=== PATIENT | female | born 1960 | race African-American/Black ===

== ENCOUNTER 2021-01-08 04:13 | Day surgery (SDC) | payer OTHER ==
[2021-01-04 16:53] VITALS: BMI 19.5
[2021-01-08] MEDS ORDERED: MIDAZOLAM HCL 2 MG/2 ML SINGLE DOSE VIAL ONE ×2 (08:41)
[2021-01-08] MEDS ORDERED: DEXAMETHASONE SOD PHOSPHATE 4 MG/1 ML VIAL ONE (08:50)
[2021-01-08 09:30] VITALS: TEMP 97.5
[2021-01-08 12:55] VITALS: BP 139/61; PULSE 50
== END 2021-01-08 12:35 | disposition home or self-care (01) ==
LOC: JASU-SURG 04:13
PROVIDERS: ATTEND Urology
PROC: 0TF4XZZ Fragmentation in Left Kidney Pelvis, External Approach (ICD-10-PCS; principal; 2021-01-08 08:30)
DX: N20.0 Calculus of kidney (principal)